=== PATIENT | female | born 1960 | race Caucasian/White ===

== ENCOUNTER 2017-12-12 05:25 | Day surgery (SDC) | payer OTHER ==
[~2017-12-12] VITALS: Ht 167.6 cm; Wt 95.3 kg
--- NOTE | ~2017-12-12 | H ---
[facility] [place] [address] HISTORY AND PHYSICAL Name: OCTAVIO MITTAL Room #: PRE [facility] M.R.#: [id number] Admission: Attend Phys: Hay Trejo MD Discharge: Date of : 64 Report #: [id number] THIS REPORT FOR: //name// CC: Hay Reaves DATE OF SERVICE: 11/14/2017 CHIEF COMPLAINT: Recurring acute rhinosinusitis. HISTORY OF PRESENT ILLNESS: The patient is a 57-year-old female, referred last September from her family care doctor for recurring sinonasal complaints that have started in June, had been intermittent and recurrent ever since, seems to have occasional flares, which will become more severe in the left maxillary sinus region along with left-sided nasal airway obstruction, thick drainage and left upper dental pain. She had a previous root canal performed and took multiple antibiotics. She had a CT scan done in September, which demonstrated evidence of left frontal ethmoid and maxillary sinus opacification along with left septal deviation. At that time I saw her, she had been started back on a 3-week course of Augmentin. At that point, she was completing therapy. It was recommended to see if there are any further indications for further medical therapy or surgical therapy that would be warranted. Review of her CT scan was done by phone on 10/08/2017, discussed the CT scan which did note substantial amount of thickening in the maxillary sinus and the narrowed left maxillary ostia along with significant septal deviation and turbinate hypertrophy. At that point, I discussed with her the options of continued medical therapy for her recurring problems, also discussed the option of a septoplasty along with turbinate reduction and opening the left nasal antral window maxillary sinus ostia. Surgical risks and benefits were discussed with her as well. She made the decision to go ahead and proceed at that point in time with surgical intervention. Plan will be for the above-mentioned surgical interventional therapy. She is aware that there is no guarantee for cure for recurrent sinus problems despite therapy and she can continue of her recurring sinus and nasal symptoms. All surgical risks and benefits for the septoplasty and turbinate reduction in maxillary sinus were reviewed with her and questions answered appropriately. ALLERGIES TO MEDICATION: Erythromycin. MEDICATIONS ON ADMISSION: Enalapril 10 mg once a day, metformin 1000 mg a day. PAST MEDICAL HISTORY AND PAST SURGICAL HISTORY: Extraction of wisdom teeth, history of arthritis, non-insulin dependent diabetes. FAMILY HISTORY: Notable for heart disease and diabetes. [address] [address] HISTORY AND PHYSICAL Name: OCTAVIO MITTAL Room #: PRE [facility]..#: [id number] Admission: Attend Phys: Hay Trejo MD Discharge: Date of : 64 Report #: [id number] REVIEW OF SYSTEMS: Otherwise, negative for any known GI, , CV or pulmonary issues. PHYSICAL EXAMINATION: GENERAL: Female, appears her stated age. She is height and weight proportional. HEENT: Examination of the external nares is unremarkable. Ears are normal. Facial structures are normal. Nares reveal rather substantial left-sided septal deflection with left greater than right turbinate hypertrophy. Oral cavity and pharynx were unremarkable. NECK: Normal to palpation. CHEST: Clear. CARDIOVASCULAR: Regular rate and rhythm. ASSESSMENT AND PLAN: History of recurring left nasal airway obstruction and left recurrent sinusitis. Plan will be for the above-mentioned surgery. <ELECTRONICALLY SIGNED> By: Hay Trejo MD 11/14/17 0732 0827 0913 Hay Trejo MD /nt
--- NOTE | ~2017-12-12 | EKG ---
[address] [address] ELECTROCARDIOGRAM REPORT Name: OCTAVIO MITTAL Room #: 150-3 [facility].#: [id number] Admission: 12/12/17 Attend Phys: Hay Trejo MD Discharge: Date of : 64 Report #: [id number] THIS REPORT FOR: //name// [facility] Test Date: 2017-12-12 Test Time: 06:47:19 Pat Name: OCTAVIO MITTAL Department: Room: 150 3 Gender: F Full Charge Bookkeeper: ASHVIN : 1960 Requested By: Hay Trejo Order Number: [id number] MD: Juan Diego Anand Measurements Intervals [place] Rate: 64 P: 40 UT: 142 QRS: 24 QRSD: 93 T: 41 QT: 423 QTc: 430 Interpretive Statements Sinus rhythm Normal tracing No previous ECG available for comparison Electronically Signed On 12-12-2017 9:07:24 [employer] by Juan Diego Anand [email or web address] <ELECTRONICALLY SIGNED> By: Juan Diego Anand MD, [facility] 12/12/17 0907 0647 0647 Juan Diego Anand MD, FACC /EPI
--- NOTE | ~2017-12-12 | O ---
[facility] [place] [address] OPERATIVE REPORT Name: OCTAVIO MITTAL Room #: [facility].#: [id number] Admission: 12/12/17 Attend Phys: Hay Trejo MD Discharge: 12/12/17 Date of : 64 Report #: [id number] THIS REPORT FOR: //name// CC: Hay Gu [facility] DATE OF SERVICE: 12/12/2017 PREOPERATIVE DIAGNOSES: Nasal septal deformity, turbinate hypertrophy and left maxillary sinusitis. POSTOPERATIVE DIAGNOSES: Nasal septal deformity, turbinate hypertrophy and left maxillary sinusitis. PROCEDURE: 1. Nasal septoplasty. 2. Left maxillary sinus balloon dilation with removal of tissue. 3. Inferior turbinate outfracturing and submucous resection. SURGEON: Hay Trejo M.D. ANESTHESIA: General LMA. INDICATIONS: See H and P. TECHNIQUE: After obtaining consent, she was brought to the operating suite, appropriate time out was performed. General LMA anesthesia was obtained, the bed was turned 90 degrees. Nose was prepped and draped in the usual sterile fashion. Cottonoids soaked with Afrin were placed in each side of the nares to vaso-constrict the inferior and middle turbinates. A 6 mL of 1% Xylocaine and 1:100,000 epinephrine was injected in each side of the nasal septum. 1 mL was injected on the left anterior middle turbinate, face and the left lateral nasal wall. Additional mL was injected in each inferior turbinate for a total of 10 mL local anesthetic. Care was made not to inject intravascularly. Initial evaluation of the septum showed it to be substantially bowed to the left side. After making hemitransfixion incision, I carefully elevated mucosal flap off the quadrangular cartilage, the vomer and to the perpendicular plate on the left side. Upon elevating the flap on the left side, it was noted that there was missing quadrangular cartilage in the center portion, approximately a centimeter in size. This correlated well with the excoriation of the mucosal flaps on each side. Therefore, care was made not to remove cartilage in this area where the existing missing quadrangle cartilage was located. I made a vertical incision through the quadrangular cartilage posterior to this and brought the incision superiorly over the missing quadrangular cartilage. I then elevated the mucosal flap on the right side of the posterior quadrangular [address] [address] OPERATIVE REPORT Name: KYRIEOCTAVIOMilo HERRERA Room #: [facility] [place] [place]#: [id number] Admission: 12/12/17 Attend Phys: Hay Trejo MD Discharge: 12/12/17 Date of : 64 Report #: [id number] cartilage disarticulating the cartilage superiorly as well. I carried this mucosal flap back as far possible on the right side exposing the anterior vomer and perpendicular plate as well. In doing so, I preserved quadrangular cartilage around the perforation posteriorly, superiorly, anteriorly and inferiorly. I carried the incision down to the maxillary crest and then disarticulated the quadrangular cartilage inferiorly off the maxillary crest. This posterior quadrangular cartilage was then harvested with [place] forceps. The vomer deviation to the left was noted. I continued elevating back on both sides exposing the vomer deviation, which was taken down with combination of [place] forceps and [place] scissors. I then returned inferiorly and created a bit of a swinging door cartilage flap, which included the perforation. This allowed me to trim the inferior portion of the quadrangular cartilage without involving the missing quadrangular cartilage as well as taking down the maxillary crest with a chisel. Upon removal, I did make a small posterior left flap incision to allow for any postoperative drainage purposes. Previously harvested cartilage was trimmed, morcellized and placed back between the septal folds posterior to the quadrangular cartilage defect. I assured that there was no devitalized mucosa on either side of where the quadrangular cartilage defect was noted. The hemitransfixion incision was closed with simple interrupted 4-0 chromic sutures. This allowed the septum to be more midline. This allowed me to expose the left middle meatus. Using a 0 degree endoscope, the left side of the nares was intubated. The middle turbinate was medialized with a [place]. The uncinate was brought forward with a double ball. A side biter was used to remove the inferior and middle portion of the uncinate along with the microdebrider. This exposed the natural maxillary ostia much easier. Using a double ball probe, the maxillary ostia were found barely admitting the probe itself. Under direct visualization, a [employer] maxillary sinus balloon was then introduced into the maxillary ostia. Location was visually confirmed. The balloon was then dilated on four passes to appropriate pressure setting. Upon removal of the balloon, there was no active bleeding noted. I then used a large curved olive tip suction to introduce into the maxillary sinus. No purulence or debris was noted. The mucosa appeared to be fairly healthy. It should be noted that the ethmoid bulla mucosa appeared to be unremarkable. Each inferior turbinate was medialized with a [place]. The above local anesthetic was infiltrated. A small stab incision was made in the anterior, inferior face of each inferior turbinate. I elevated the submucosal flap with the [place] elevator. Microdebrider was then used to submucosally reduce the medial, medial inferior surface of each inferior turbinate. Each inferior turbinate was then outfractured. Simple splints were designed and fashioned by myself, placed in each side of the septum and secured with a 3-0 Prolene suture. Merogel was then trifolded and placed between the septum and the inferior turbinates bilaterally. Nasopharynx was suctioned free of secretion. No active bleeding was noticed. She was allowed to awaken from anesthesia and went to the recovery room in stable condition. [address] [address] OPERATIVE REPORT Name: OCTAVIO MITTAL Room #: [facility]#: [id number] Admission: 12/12/17 Attend Phys: Hay Trejo MD Discharge: 12/12/17 Date of : 64 Report #: [id number] ESTIMATED BLOOD LOSS: 20 mL. <ELECTRONICALLY SIGNED> By: Hay Trejo MD 01/09/18 0718 0844 0932 Hay Trejo MD /nt
[~2017-12-12 05:25] MED LIST: GLUCOPHAGE1000 MG PO; MULTIVITAMINS1 EAC7 PO; VASOTEC10 MG PO
[2017-12-12 07:00] VITALS: BP 145/87
[2017-12-12 08:59] VITALS: BP 145/87
== END 2017-12-12 10:15 | disposition home or self-care (01) ==
LOC: OR 05:25 → TBA 05:25 → OR 10:15
DX: J34.2 Deviated nasal septum (principal); J34.3 Hypertrophy of nasal turbinates; J32.0 Chronic maxillary sinusitis; E11.9 Type 2 diabetes mellitus without complications
CPT/HCPCS: 50010; 50101; 50286; 50386; 50398; 50849; 51316; 51634; 53635; 56526; 56528; 62110; 62900; 70005